=== PATIENT | male | born 1950 | race Caucasian/White ===

== ENCOUNTER 2021-06-24 14:18 | Emergency (ER) | payer OTHER ==
[2021-06-24 14:52] VITALS: TEMP 98.1; BMI 30.4
[2021-06-24] MEDS ORDERED: LIDOCAINE 1%/EPI 1:100000 (20 ML MULTI DOSE VIAL) INF ONE (16:04)
[2021-06-24] MEDS ORDERED: LIDOCAINE 1%/EPI 1:100000 (20 ML MULTI DOSE VIAL) ONE ×2 (16:07→16:33)
[2021-06-24 17:49] VITALS: BP 161/85; PULSE 83
== END 2021-06-24 17:48 | disposition home or self-care (01) ==
LOC: JER 14:18
DX: S51.812A Laceration without foreign body of left forearm, initial encounter (principal); W27.1XXA Contact with garden tool, initial encounter; Y92.9 Unspecified place or not applicable
CPT/HCPCS: 99283-25

== ENCOUNTER 2023-04-02 16:08 | Emergency (ER) | payer OTHER ==
[2023-04-02 16:17] VITALS: BP 176/98; PULSE 95; RESP 19; TEMP 98; BMI 30.2
[2023-04-02] MEDS ORDERED: LIDOCAINE HCL 1%, 10 MG/ML (50 mL VIAL) SQ ONE (16:54)
[2023-04-02] MEDS ORDERED: LIDOCAINE HCL/PF 1% SDV 5ML VIAL ONE (17:00)
[2023-04-02] MEDS ORDERED: ceFAZolin SODIUM 1 GM VIAL IM ONE (18:14)
[2023-04-02] MEDS ORDERED: ceFAZolin SODIUM 1 GM VIAL ONE ×2 (18:42→18:46)
== END 2023-04-02 19:18 | disposition home or self-care (01) ==
LOC: JER 16:08
PROC: 0HQFXZZ Repair Right Hand Skin, External Approach (ICD-10-PCS; principal; 2023-04-02)
PROC: 3E02329 Introduction of Other Anti-infective into Muscle, Percutaneous Approach (ICD-10-PCS; 2023-04-02)
DX: S62.521A Displaced fracture of distal phalanx of right thumb, initial encounter for closed fracture (principal); S61.011A Laceration without foreign body of right thumb without damage to nail, initial encounter; W27.2XXA Contact with scissors, initial encounter; Y99.0 Civilian activity done for income or pay
CPT/HCPCS: 73130-TC-RT-FY; 99284-25